=== PATIENT | male | born 1975 | race Caucasian/White ===

== ENCOUNTER 2021-07-29 19:01 | Emergency (ER) | payer OTHER ==
[2021-07-29] MEDS ORDERED: BACTRIM DS TAB1 EACH PO (22:06)
[2021-07-29] MEDS ORDERED: CEPHALEXIN500 MG PO (22:06)
[2021-07-29] MEDS ORDERED: BACITRACIN3.5 GM TP (22:07)
== END 2021-07-29 23:19 | disposition home or self-care (01) ==
LOC: ER1 19:01
DX: L02.01 Cutaneous abscess of face (principal); F17.210 Nicotine dependence, cigarettes, uncomplicated
CPT/HCPCS: 10060; 99282